=== PATIENT | male | born 2000 | race Hispanic/Latino ===

== ENCOUNTER 2023-04-01 13:31 | Emergency (ER) | payer OTHER ==
[~2023-04-01] VITALS: Ht 175.3 cm; Wt 81.8 kg
[2023-04-01 13:32] VITALS: BP 113/60; TEMP 97.3; O2SAT 98
[2023-04-01] MEDS ORDERED: DEBR6.5S4 AS (14:35)
== END 2023-04-01 14:44 | disposition home or self-care (01) ==
LOC: M ED 13:31
DX: H61.22 Impacted cerumen, left ear (principal); F17.200 Nicotine dependence, unspecified, uncomplicated

== ENCOUNTER 2023-11-03 08:13 | Emergency (ER) | payer OTHER ==
[~2023-11-03] VITALS: Ht 175.3 cm; Wt 81.6 kg
[~2023-11-03 08:13] MED LIST: DEBR6.5S4 AS
[2023-11-03] MEDS: MORPHINE 2 MG/ML 1ML VIAL IV ONE (08:43)
[2023-11-03] MEDS: CYCLOBENZAPRINE 10MG TABLET PO ONE (08:43)
[2023-11-03] MEDS: NS 1,000 ML IV ONE ×2 (08:43→09:40)
[2023-11-03 09:41] VITALS: O2SAT 99
[2023-11-03] MEDS: KETOROLAC 30 MG/ML 1ML VIAL IV ONE (09:53)
[2023-11-03] MEDS: MORPHINE 4 MG/ML 1ML VIAL IV ONE (11:40)
[2023-11-03] MEDS: PERCOCET 5MG/325MG TAB PO ONE (11:43)
[2023-11-03] MEDS ORDERED: HOME MED LIST COMPLETE! XX SCH (11:45)
[2023-11-03] MEDS ORDERED: IBUP-1022 PO (14:38)
[2023-11-03] MEDS ORDERED: META1TAB22 PO (14:39)
[2023-11-03] MEDS ORDERED: PERC5TAB12 PO (14:40)
[2023-11-03 14:57] VITALS: BP 107/55; TEMP 98.3; O2SAT 100
== END 2023-11-03 15:01 | disposition home or self-care (01) ==
LOC: M ED 08:13 → EDBD 08:13 → M ED 15:01
DX: M51.26 Other intervertebral disc displacement, lumbar region (principal); F17.200 Nicotine dependence, unspecified, uncomplicated; Z79.1 Long term (current) use of non-steroidal anti-inflammatories (NSAID); Z79.891 Long term (current) use of opiate analgesic; Z79.899 Other long term (current) drug therapy
CPT/HCPCS: 72110; 72148; 80047; 96374; 96375; 99285; J1885

== ENCOUNTER 2024-06-12 19:26 | Emergency (ER) | payer OTHER ==
[~2024-06-12] VITALS: Ht 175.3 cm; Wt 85.1 kg
[2024-06-12 19:26] VITALS: TEMP 99; O2SAT 100
[~2024-06-12 19:26] MED LIST changes: +IBUP-1022 PO; +META1TAB22 PO; +PERC5TAB12 PO
[2024-06-12 20:30] LABS: RSV AMPLIFICATION NEGATIVE (NEGATIVE)
[2024-06-13] MEDS: NS 1,000 ML IV ONE (01:40)
[2024-06-13 01:52] LABS: BASO % 0.6 % (0.0-1.0); EOS # 0.3 10^3/uL (0.0-0.5); EOS % 4.7 % (0.0-3.0); HEMOGLOBIN 15.6 g/dl (13.5-17.5); LYMPH # 3.7 10^3/uL (1.5-5.0); LYMPH % 52.9 % (24.0-44.0); MEAN CORPUSCULAR HEMOGLOBIN 27.5 pg (27.0-33.0); MEAN CORPUSCULAR HGB CONC 33.9 g/dl (32.0-36.5); MONO # 0.4 10^3/uL (0.0-0.8); MONO % 5.3 % (2.0-8.0); NEUTROPHILS # 2.5 10^3/uL (1.5-8.5); NEUTROPHILS % 36.4 % (36.0-66.0); PLATELET COUNT, AUTOMATED 196 10^3/uL (150-450); RED BLOOD COUNT 5.68 10^6/uL (4.30-6.10)
[2024-06-13 02:21] LABS: BLOOD UREA NITROGEN 12 MG/DL (9-23); CALCIUM LEVEL 9.6 MG/DL (8.5-10.1); CARBON DIOXIDE LEVEL 31 MMOL/L (20-31); CHLORIDE LEVEL 104 MMOL/L (98-107); CREATININE FOR GFR 1.03 MG/DL (0.70-1.30); GLOMERULAR FILTRATION RATE > 60.0 (>60); GLUCOSE, FASTING 90 MG/DL (60-100); POTASSIUM SERUM 4.1 MMOL/L (3.5-5.1); SODIUM LEVEL 140 MMOL/L (136-145)
[2024-06-13 02:28] VITALS: BP 130/76
[2024-06-13 02:54] LABS: CK-MB VALUE MASS < 1.0 NG/ML (<3.6)
[2024-06-13 02:55] LABS: CPK CREATINE PHOSPHOKINASE 197 U/L (46-171)
== END 2024-06-13 03:27 | disposition home or self-care (01) ==
LOC: M ED 19:26
DX: E86.0 Dehydration (principal); R53.83 Other fatigue; Z79.899 Other long term (current) drug therapy